=== PATIENT | female | born 1970 | race Caucasian/White ===

== ENCOUNTER 2024-10-28 15:25 | Oncology outpatient (recurring) (ONCR) | payer OTHER, SELFPAY ==
[2024-10-28] MEDS: alteplase 1 mg/mL SDV 2 mL 2 MG INTRACATH (16:39)
[2024-10-28 16:54] LABS: Hematocrit 47.1 % (36-47); Hemoglobin 16.10 g/dL (11.27-16.99); Mean Corpuscular HGB Conc 34.2 g/dL (30-55); Mean Corpuscular Hemoglobin 31.9 pg (27-33); Mean Corpuscular Volume 93.5 fl (85-98); Nucleated Red Blood Cells % 0 %; Platelet Count 182 10^3/cmm (157-399); Red Blood Count 5.04 10^6/uL (3.85-5.65); White Blood Count 11.92 10^3/uL (3.29-11.43)
[2024-10-28 17:31] LABS: Alanine Aminotransferase 23 U/L (0-33); Albumin Level 3.9 g/dL (3.5-5.2); Alkaline Phosphatase 160 U/L (35-105); Blood Urea Nitrogen 14 mg/dL (6-20); CA 125 18.4 U/mL (0-35); Calcium 9.8 mg/dL (8.5-10.5); Carbon Dioxide 23 mmol/L (22-29); Chloride 95 mmol/L (98-107); Creatinine Clr Calc Pharmacy 92.9130; Globulin 3.2 g/dL (1.3-4.6); Glucose 405 mg/dL (65-115); Osmolality Calculated 296 mOsm/kg (285-295); Sodium 134 mmol/L (136-145); Total Protein 7.1 g/dL (6.6-8.7)
[2024-10-28 17:35] LABS: Anion Gap 19.8 (5-19); Aspartate Amino Transferase 17 U/L (0-32); Potassium 3.8 mmol/L (3.5-5.1)
[2024-10-30 04:33] LABS: PROTEIN, TOTAL 6.6 g/dL (6.1-8.1)
[2024-10-30 14:14] LABS: KAPPA LIGHT CHAIN, FREE, SERUM 21.9 mg/L (3.3-19.4); KAPPA/LAMBDA LIGHT CHAINS FREE 0.91 (0.26-1.65); LAMBDA LIGHT CHAIN, FREE, SERU 24.1 mg/L (5.7-26.3)
[2024-10-30 15:25] LABS: ALPHA 1 GLOBULIN 0.3 g/dL (0.2-0.3); ALPHA 2 GLOBULIN 0.9 g/dL (0.5-0.9); BETA 1 GLOBULIN 0.5 g/dL (0.4-0.6); BETA 2 GLOBULIN 0.5 g/dL (0.2-0.5)
== END 2024-11-03 23:59 | disposition home or self-care (01) ==
PROVIDERS: PCP Clinical Nurse Specialist Adult Health; Visit Provider Internal Medicine Medical Oncology
DX: Z85.42 Personal history of malignant neoplasm of other parts of uterus (principal); T82.898A Other specified complication of vascular prosthetic devices, implants and grafts, initial encounter; X58.XXXA Exposure to other specified factors, initial encounter
CPT/HCPCS: 36415; 36593; 80053; 83883; 84155; 84165; 85025; 86304; J2997

== ENCOUNTER → 2024-10-30 09:23 | Outpatient (BNVA) | payer OTHER, SELFPAY | PROVIDERS: PCP Clinical Nurse Specialist Adult Health; Visit Provider Clinical Nurse Specialist Adult Health | DX: R30.0 Dysuria (principal) | CPT/HCPCS: 81000; 87086 ==

== ENCOUNTER → 2024-11-12 10:03 | Outpatient (BNVA) | payer OTHER, SELFPAY | PROVIDERS: PCP Clinical Nurse Specialist Adult Health; Visit Provider Clinical Nurse Specialist Adult Health | DX: N39.0 Urinary tract infection, site not specified (principal) | CPT/HCPCS: 81000; 87086 ==

== ENCOUNTER → 2024-11-25 14:17 | Outpatient (BNVA) | payer OTHER, SELFPAY | PROVIDERS: PCP Clinical Nurse Specialist Adult Health; Visit Provider Clinical Nurse Specialist Adult Health | DX: N39.0 Urinary tract infection, site not specified (principal) | CPT/HCPCS: 81000 ==

== ENCOUNTER 2024-12-03 15:00 | Oncology outpatient (recurring) (ONCR) | payer OTHER, SELFPAY ==
[2024-12-03 08:53] LABS: Creatinine Urine, Random 48 mg/dL (28-217); Microalbum Creatinine Ratio Ur 21 mg/dL (0-20)
[2024-12-03 09:46] LABS: Estmated Average Glucose 298; Hemoglobin A1C 12.0 % (4.0-6.0)
[2024-12-12 05:36] LABS: GAD 65 IA-2 Antibody <5.4 U/mL (<5.4); GAD Insulin Autoantibody <0.4 U/mL (<0.4); Glutamic Acid Decarboxylase 65 <5 IU/mL (<5); Zinc Transporter 8 AB <10 U/mL (<15)
== END 2024-12-03 23:59 | disposition home or self-care (01) ==
PROVIDERS: Internal Medicine; PCP Clinical Nurse Specialist Adult Health; Visit Provider Internal Medicine Medical Oncology
DX: Z45.2 Encounter for adjustment and management of vascular access device; Z95.828 Presence of other vascular implants and grafts; E10.9 Type 1 diabetes mellitus without complications; Z53.9 Procedure and treatment not carried out, unspecified reason
CPT/HCPCS: 36415; 82044; 83036; 84681; 86337; 86341; 96523

== ENCOUNTER → 2024-12-09 15:06 | Outpatient (BNVA) | payer OTHER, SELFPAY | PROVIDERS: PCP Clinical Nurse Specialist Adult Health; Visit Provider Nurse Practitioner | DX: N39.0 Urinary tract infection, site not specified (principal); A49.9 Bacterial infection, unspecified; Z16.12 Extended spectrum beta lactamase (ESBL) resistance | CPT/HCPCS: 81000; 87086 ==

== ENCOUNTER → 2024-12-19 11:37 | Outpatient (BNVA) | payer SELFPAY | PROVIDERS: PCP Clinical Nurse Specialist Adult Health; Visit Provider Clinical Nurse Specialist Adult Health | DX: I10 Essential (primary) hypertension (principal) | CPT/HCPCS: 80053; 85025 ==

== ENCOUNTER 2025-01-06 09:42 | Oncology outpatient (recurring) (ONCR) | payer MEDICAID, SELFPAY ==
[2025-01-06 10:50] LABS: Alanine Aminotransferase 25 U/L (0-33); Albumin Level 3.9 g/dL (3.5-5.2); Alkaline Phosphatase 140 U/L (35-105); Aspartate Amino Transferase 21 U/L (0-32); Blood Urea Nitrogen 14 mg/dL (6-20); Calcium 9.0 mg/dL (8.5-10.5); Carbon Dioxide 21 mmol/L (22-29); Chloride 103 mmol/L (98-107); Cholesterol 166 mg/dL (0-200); Globulin 3.0 g/dL (1.3-4.6); Glucose 363 mg/dL (65-115); HDL Cholesterol 49 mg/dL (60-100); Osmolality Calculated 299 mOsm/kg (285-295); Sodium 137 mmol/L (136-145); Total Protein 6.9 g/dL (6.6-8.7); Triglycerides 456 mg/dL (0-150)
[2025-01-06 11:37] LABS: Anion Gap 17.0 (5-19); Potassium 4.0 mmol/L (3.5-5.1)
== END 2025-02-02 23:59 | disposition home or self-care (01) ==
PROVIDERS: Internal Medicine; PCP Clinical Nurse Specialist Adult Health; Visit Provider Internal Medicine Medical Oncology
DX: E10.9 Type 1 diabetes mellitus without complications (principal)
CPT/HCPCS: 36415; 80053; 80061; 82947; 83721

== ENCOUNTER 2025-01-23 14:50 | Outpatient (CLI) | payer MEDICAID, SELFPAY ==
--- NOTE | 2025-01-23 15:00 | US_ITS ---
WS: [id number] ULTRASOUND RENAL TECHNIQUE: Ultrasound examination of both kidneys. CLINICAL INFORMATION: N39.0 - Urinary tract infection, site not specified COMPARISON: None. FINDINGS: RIGHT: Right kidney is normal in size and appearance. Echogenicity: Normal. Cortical thickness: 1.0 cm; Normal. Hydronephrosis: None. Perinephric fluid: None. Right kidney measures: 9.0 cm x 5.5 cm x 5.2 cm. LEFT: Left kidney is normal in size and appearance. Echogenicity: Normal. Cortical thickness: 1.0 cm; Normal. Hydronephrosis: None. Perinephric fluid: None. Left kidney measures: 9.3 cm x 5.4 cm x 5.9 cm. Normal visualized aorta. Normal-appearing urinary bladder. US/US renal BI* [id number] IMPRESSION: Normal renal ultrasound
== END 2025-01-23 14:51 | disposition home or self-care (01) ==
LOC: RAD 14:50
PROVIDERS: PCP Clinical Nurse Specialist Adult Health; Visit Provider Anesthesiology Pain Medicine
DX: N39.0 Urinary tract infection, site not specified (principal)
CPT/HCPCS: 76770

== ENCOUNTER 2025-02-10 13:33 | Oncology outpatient (recurring) (ONCR) | payer OTHER, MEDICAID, SELFPAY ==
--- NOTE | 2025-02-10 14:15 | CTR_ITS ---
PROCEDURE INFORMATION: Exam: CT Chest With Contrast; Diagnostic Exam date and time: 02/10/2025 3:18 PM Age: 54 years old Clinical indication: Condition or disease; Other: Uterine/cervical cancer; Prior surgery; Surgery date: 6+ months; Surgery type: Hyst, port; Additional info: History of cancer of uterus/cervical TECHNIQUE: Imaging protocol: Diagnostic computed tomography of the chest with contrast. Radiation optimization: All CT scans at this facility use at least one of these dose optimization techniques: automated exposure control; mA and/or kV adjustment per patient size (includes targeted exams where dose is matched to clinical indication); or iterative reconstruction. Contrast material: OMNI 350; Contrast volume: 100 ml; Contrast route: INTRAVENOUS (IV); COMPARISON: US renal BI* [id number] 01/23/2025 3:00 PM RADIATION DOSE METRICS: Total DLP (mGy-cm): 1067.06 FINDINGS: Tubes, catheters and devices: Right internal jugular Port-A-Cath with the tip in the distal SVC. Lungs: The 3 mm fissural nodule anteriorly on the right minor fissure. No consolidation. Pleural spaces: Unremarkable. No pneumothorax. No pleural effusion. Heart: Unremarkable. No cardiomegaly. No pericardial effusion. Esophagus: Air and oral contrast are present in the esophagus. Lymph nodes: Unremarkable. No enlarged lymph nodes. Vasculature: The cavoatrial junction is narrowed and there is marked enhancement of the azygos vein. Bones/joints: Unremarkable. No acute fracture. Soft tissues: Unremarkable. PROCEDURE INFORMATION: Exam: CT Abdomen And Pelvis With Contrast Exam date and time: 02/10/2025 3:18 PM Age: 54 years old Clinical indication: Condition or disease; Other: Uterine/cervical cancer; Prior surgery; Surgery date: 6+ months; Surgery type: Hyst, port; Additional info: History of cancer of uterus/cervical TECHNIQUE: Imaging protocol: Computed tomography of the abdomen and pelvis with contrast. Radiation optimization: All CT scans at this facility use at least one of these dose optimization techniques: automated exposure control; mA and/or kV adjustment per patient size (includes targeted exams where dose is matched to clinical indication); or iterative reconstruction. Contrast material: OMNI 350; Contrast volume: 100 ml; Contrast route: INTRAVENOUS (IV); COMPARISON: US renal BI* [id number] 01/23/2025 3:00 PM RADIATION DOSE METRICS: Total DLP (mGy-cm): 1067.06 FINDINGS: Tubes, catheters and devices: Sacral neurostimulator device is noted. Liver: Normal. No mass. Gallbladder and biliary ducts: Normal. No calcified stones. No ductal dilation. Pancreas: Normal. No ductal dilation. Spleen: Normal. No splenomegaly. Adrenal glands: 2 cm left adrenal nodule. Mild thickening of the medial limb of the right adrenal gland. Kidneys and ureters: No mass or hydronephrosis. Stomach and bowel: Bowel caliber is normal. No paracolonic inflammatory changes. Appendix: Normal appendix. Intraperitoneal space: No free intraperitoneal fluid or gas. Vasculature: Aortic caliber is normal. Lymph nodes: No lymph node enlargement. Urinary bladder: No focal wall thickening of the urinary bladder. Reproductive: Previous hysterectomy. No adnexal mass identified. Bones/joints: Unremarkable. No acute fracture. Soft tissues: Paraumbilical subcutaneous gas relating to previous injection. CT/CT chest abdpel w/*[id number] IMPRESSION: 1. The cavoatrial junction is narrowed and there is marked enhancement of the azygos vein. The possibility of distal SVC stenosis is considered, which represents the distal end of the Port-A-Cath. 2. No evidence of neoplastic disease in the chest. IMPRESSION: 1. 2 cm left adrenal nodule. If not previously characterized, this can be further evaluated with nonemergent adrenal protocol CT or MRI. 2. No other evidence for residual or recurrent uterine/cervical cancer in the abdomen or pelvis.
[2025-02-10] MEDS: iohexol 350 mg/mL 500 mL Btl (per mL) PO (15:36)
[2025-02-10] MEDS: iohexol 350 mg/mL 500 mL Btl (per mL) IV (15:36)
== END 2025-03-05 23:59 | disposition home or self-care (01) ==
PROVIDERS: PCP Clinical Nurse Specialist Adult Health; Visit Provider Internal Medicine Medical Oncology
DX: Z85.42 Personal history of malignant neoplasm of other parts of uterus (principal); Z85.41 Personal history of malignant neoplasm of cervix uteri; R93.89 Abnormal findings on diagnostic imaging of other specified body structures; Z95.828 Presence of other vascular implants and grafts; E27.8 Other specified disorders of adrenal gland; Z90.710 Acquired absence of both cervix and uterus; M79.89 Other specified soft tissue disorders
CPT/HCPCS: 71260; 74177

== ENCOUNTER 2025-02-13 13:58 | Outpatient (CLI) | payer MEDICAID, SELFPAY | END 2025-02-13 13:59 | disposition home or self-care (01) | LOC: SLEEP 13:59 | PROVIDERS: PCP Clinical Nurse Specialist Adult Health; Referring Provider Clinical Nurse Specialist Adult Health; Visit Provider Internal Medicine Pulmonary Disease | DX: G47.33 Obstructive sleep apnea (adult) (pediatric) (principal) | CPT/HCPCS: G0399 ==